=== PATIENT | female | born 1995 | race Caucasian/White ===

== ENCOUNTER → 2016-06-15 | Outpatient (CLI) | payer BC ==
[~2016-06-15] MED LIST: BCPILLS PO
--- NOTE | 2016-06-15 21:41 | DIAGNOSTIC IMAGING REPORT ---
LEFT HIP UNILATERAL 2 VIEWS CLINICAL HISTORY: LEFT HIP PAIN pain COMPARISON: None. DISCUSSION: The bones and joint spaces appear intact. There is no evidence of fracture, dislocation or bony disease. There is no evidence for soft tissue swelling. IMPRESSION: Negative study. Electronically signed by: Froy Hardy M.D. 06/15/2016 9:40 PM Dictated Date/Time: 06/15/2016 9:39 PM
[2016-06-15 21:45] LABS: URINE APPEARANCE CLEAR (CLEAR); URINE BILIRUBIN NEG (NEG); URINE COLOR YELLOW; URINE NITRITE NEG (NEG); URINE PH 5.5 (4.5-7.5); URINE SPECIFIC GRAVITY 1.016 (1.000-1.030); UROBILINOGEN NEG (NEG)
[2016-06-15 21:49] LABS: BASO % 0.5 %; BASO ABS # 0.03 K/uL (0-0.2); COMPLETE YES; EOS % 0.8 %; IG% 0.2 %; LYMPH % 48.2 %; LYMPH ABS # 2.91 K/uL (1.2-3.4); MEAN CORPUSCULAR HEMOGLOBIN 30.4 pg (25-34); MEAN CORPUSCULAR HGB CONC 34.5 g/dl (32-36); MEAN PLATELET VOLUME 10.6 fL (7.4-10.4); NEUT % 45.3 %; PLATELET COUNT 211 K/uL (130-400); WHITE BLOOD COUNT 6.04 K/uL (4.8-10.8)
[2016-06-15 21:53] LABS: MANUAL MICROSCOPIC REQUIRED? NO; REVIEW REQ? NO
[2016-06-15 21:57] LABS: PFT COL EPI 120 SECONDS (80-184)
== END | disposition home or self-care (01) ==
LOC: C.RAD 20:41
PROVIDERS: ATTEND Family Medicine
DX: M25.551 Pain in right hip (principal); I73.00 Raynaud's syndrome without gangrene

== ENCOUNTER → 2017-03-31 | Outpatient (CLI) | payer BC ==
[2017-03-31 13:22] LABS: HEMATOCRIT 41.3 % (37-47); MEAN CORPUSCULAR HEMOGLOBIN 30.7 pg (25-34); MEAN CORPUSCULAR HGB CONC 34.1 g/dl (32-36); MEAN PLATELET VOLUME 10.7 fL (7.4-10.4); PLATELET COUNT 186 K/uL (130-400); RED BLOOD COUNT 4.59 M/uL (4.2-5.4); WHITE BLOOD COUNT 3.86 K/uL (4.8-10.8)
[2017-03-31 13:41] LABS: PREG INTERNAL NEGATIVE QC NEG CLEAR BACKGROUND; PREG INTERNAL POSITIVE QC POS CONTROL LINE
== END | disposition home or self-care (01) ==
LOC: C.LAB1850 12:21
PROVIDERS: ATTEND Physician Assistant
DX: Z11.3 Encounter for screening for infections with a predominantly sexual mode of transmission (principal); N92.0 Excessive and frequent menstruation with regular cycle

== ENCOUNTER 2017-04-13 13:23 | Emergency (ER) | payer BC ==
[~2017-04-13] VITALS: Ht 170.2 cm; Wt 57.6 kg
[2017-04-13 13:24] VITALS: Ht 170.2 cm; Wt 57.6 kg
[2017-04-13] MEDS ORDERED: ONDANSETRON 4MG OD TAB PO ONE (13:45)
[2017-04-13] MEDS ORDERED: SODIUM CHLORIDE 0.9% 1000ML 1,000 ML IV STA (13:45)
[2017-04-13] MEDS ORDERED: MoRPHine SULFATE 2 MG/ML CARP IV STA (13:57)
[2017-04-13 14:31] LABS: PREG INTERNAL NEGATIVE QC NEG CLEAR BACKGROUND; PREG INTERNAL POSITIVE QC POS CONTROL LINE
[2017-04-13 14:32] LABS: URINE APPEARANCE CLEAR (CLEAR); URINE BILIRUBIN NEG (NEG); URINE COLOR ORANGE; URINE NITRITE NEG (NEG); URINE SPECIFIC GRAVITY 1.006 (1.000-1.030); UROBILINOGEN NEG (NEG)
[2017-04-13 14:34] LABS: MANUAL MICROSCOPIC REQUIRED? NO; REVIEW REQ? NO
[2017-04-13 14:35] LABS: SULFASALICYLIC ACID POS (NEG)
[2017-04-13 14:46] LABS: BASO % 0.7 %; BASO ABS # 0.03 K/uL (0-0.2); COMPLETE YES; EOS % 0.7 %; HEMATOCRIT 40.3 % (37-47); IG% 0.2 %; LYMPH % 40.1 %; LYMPH ABS # 1.66 K/uL (1.2-3.4); MEAN CELL VOLUME 87.2 fL (80-100); MEAN CORPUSCULAR HGB CONC 35.5 g/dl (32-36); MEAN PLATELET VOLUME 10.4 fL (7.4-10.4); MONO % 5.8 %; NEUT % 52.5 %; PLATELET COUNT 181 K/uL (130-400); RED BLOOD COUNT 4.62 M/uL (4.2-5.4); WHITE BLOOD COUNT 4.14 K/uL (4.8-10.8)
[2017-04-13 14:55] LABS: PROTHROMBIN TIME (PATIENT) 10.4 SECONDS (9.0-12.0)
[2017-04-13 15:08] LABS: PREG INTERNAL NEGATIVE QC NEG CLEAR BACKGROUND; PREG INTERNAL POSITIVE QC POS CONTROL LINE
[2017-04-13 15:13] LABS: BUN/CREATININE RATIO 11.4 (10-20); CALCIUM 9.3 mg/dl (8.5-10.1); CREATININE 0.69 mg/dl (0.60-1.20); POTASSIUM 3.3 mmol/L (3.5-5.1)
[2017-04-13 15:16] LABS: ALB/GLOB RATIO 1.3 (0.9-2)
[2017-04-13 16:17] VITALS: BP 106/63; PULSE 59; TEMP 36.9; O2SAT 98
--- NOTE | 2017-04-13 16:32 | EMERGENCY ROOM VISIT NOTE ---
ED Visit Note First contact with patient: 13:35 Chief Complaint: Vaginal bleeding. History of Present Illness: Ms. Hsieh is a 21-year-old white female who ambulates into the ED accompanied by female friend complaining of vaginal bleeding and right lower quadrant abdominal pain. Historically patient is being evaluated for menorrhagia by the by the [facility] [employer] [facility] [employer] [facility]. Her last visit was 03/31/2017. At that visit laboratory results showed no anemia, negative , estradiol was slightly low and FSH was normal. STD testing was performed and were negative. An ultrasound showed some fluid within the endometrial cavity but was otherwise normal. She was started on oral control upon discharge. Patient reports she is been taking her oral control as prescribed. She reports for the last 48 hours she has had constant vaginal bleeding; heavily coating one pad every hour. No passage of large clots or saturation of pads. Also over the last 48 hours she started developing some cramping in the left lower quadrant. She rates this discomfort 5/10. She does report its constant but has waxed and waned in intensity. She has not taken any medication for her pain. She has not identified any aggravating or alleviating factors related to the pain. Associated with her pain she reports she slightly lightheaded and has had a decreased appetite. She is also noted that she is bleeding when brushing her teeth and also feels she bruises easily; she's never been evaluated for bleeding disorder. She denies fevers, chills, sweats, skin eruptions, skin color changes, dizziness , neck/back pain, chest pain, shortness of breath, palpitations, upper abdominal pain, nausea, vomiting, urinary symptoms, diarrhea, constipation, rectal bleeding, black/tarry stools. Lastly she did call her services host office today and was referred to the ED because she was not able to be seen at the office. Review of Systems: As noted above in history of present illness. All body systems were reviewed and found to be negative as noted above. Past Medical History: As previously noted, asthma, gastric ulcers. Current Medications: Allergies to Medications: Amoxicillin. Social History: Patient is currently employed; she feels safe in her home environment; she denies tobacco and alcohol use. Physical Examination: Vital Signs: Date Time Temp Pulse Resp B/P (MAP) Pulse Ox O2 Delivery O2 Flow Rate FiO2 04/13/17 16:17 36.9 59 18 106/63 98 04/13/17 15:13 59 18 106/63 98 Room Air 04/13/17 13:58 76 129/74 74 129/81 80 111/85 04/13/17 13:24 36.9 73 16 129/89 100 Room Air GENERAL: 21-year-old female in mild distress due to symptoms, nontoxic-appearing , afebrile and hemodynamically stable. NEUROLOGICAL: Awake, alert and oriented to person, place and time. Answering questions appropriately and following commands. Normal gait. Good hand eye coordination. No focal motor sensory deficits. SKIN: Warm, dry and pink. No soft tissue eruptions or trauma noted. HEENT: Atraumatic and normocephalic. PERRLA. Sclera white and conjunctiva pink. Oral cavity moist and pink. Pharynx is nonerythematous or edematous. No lymphadenopathy. Trachea midline. No jugular venous distention. BACK: No tenderness over the bony spine. No CVA tenderness. THORAX: Lungs sounds are clear to auscultation and equal bilaterally with symmetrical chest wall. No wheezing, rales or rhonchi. No crepitus, tenderness , subcutaneous air or deformities noted. HEART: Regular rate and rhythm. No gallops, rubs or murmurs are appreciated. ABDOMEN: Flat, soft and nontender. Positive bowel sounds in all quadrants. No guarding, rigidity or organomegaly. PELVIC: Deferred at patient request. EXTREMITIES: Moves all extremities well on command and with purpose. All distal neurovascular statuses are intact and equal bilaterally. ED Course: Patient is assessed as noted above. Patient's medication list was reviewed. Laboratory Testing: Test 04/13/17 14:10 04/13/17 14:42 Range/Units Urine Color ORANGE Urine Appearance CLEAR CLEAR Urine pH 8.0 4.5-7.5 Urine Specific [place] 1.006 1.000-1.030 Urine Protein 1+ NEG Urine Glucose (UA) NEG NEG Urine Ketones NEG NEG Urine Occult Blood 3+ NEG Urine Nitrite NEG NEG Urine Bilirubin NEG NEG Urine Urobilinogen NEG NEG Urine Leukocyte Esterase NEG NEG Urine WBC (Auto) 1-5 0-5 /hpf Urine RBC (Auto) >30 0-4 /hpf Urine Hyaline Casts (Auto) 0 0-5 /lpf Urine Epithelial Cells (Auto) 5-10 0-5 /lpf Urine Bacteria (Auto) NEG NEG Urine Test NEG NEG White Blood Count 4.14 4.8-10.8 K/uL Red Blood Count 4.62 4.2-5.4 M/uL Hemoglobin 14.3 12.0-16.0 g/dL Hematocrit 40.3 37-47 % Mean Corpuscular Volume 87.2 80-100 fL Mean Corpuscular Hemoglobin 31.0 25-34 pg Mean Corpuscular Hemoglobin Concent 35.5 32-36 g/dl Platelet Count 181 130-400 K/uL Mean Platelet Volume 10.4 7.4-10.4 fL Neutrophils (%) (Auto) 52.5 % Lymphocytes (%) (Auto) 40.1 % Monocytes (%) (Auto) 5.8 % Eosinophils (%) (Auto) 0.7 % Basophils (%) (Auto) 0.7 % Neutrophils # (Auto) 2.17 1.4-6.5 K/uL Lymphocytes # (Auto) 1.66 1.2-3.4 K/uL Monocytes # (Auto) 0.24 0.11-0.59 K/uL Eosinophils # (Auto) 0.03 0-0.5 K/uL Basophils # (Auto) 0.03 0-0.2 K/uL RDW Standard Deviation 38.9 36.4-46.3 fL RDW Coefficient of Variation 12.2 11.5-14.5 % Immature Granulocyte % (Auto) 0.2 % Immature Granulocyte # (Auto) 0.01 0.00-0.02 K/uL Prothrombin Time 10.4 9.0-12.0 SECONDS Prothromb Time International Ratio 1.0 0.9-1.1 Activated Partial Thromboplast Time 26.2 21.0-31.0 SECONDS Partial Thromboplastin Ratio 1.0 Sodium Level 138 136-145 mmol/L Potassium Level 3.3 3.5-5.1 mmol/L Chloride Level 104 98-107 mmol/L Carbon Dioxide Level 28 21-32 mmol/L Anion Gap 6.0 3-11 mmol/L Blood Urea Nitrogen 8 7-18 mg/dl Creatinine 0.69 0.60-1.20 mg/dl Est Creatinine Clear Calc Drug Dose 118.3 ml/min Estimated GFR () 145.2 Estimated GFR (Non- 125.3 BUN/Creatinine Ratio 11.4 10-20 Random Glucose 82 70-99 mg/dl Calcium Level 9.3 8.5-10.1 mg/dl Total Bilirubin 0.3 0.2-1 mg/dl Aspartate Amino Transf (AST/SGOT) 17 15-37 U/L Alanine Aminotransferase (ALT/SGPT) 17 12-78 U/L Alkaline Phosphatase 86 45-117 U/L Total Protein 7.8 6.4-8.2 gm/dl Albumin 4.4 3.4-5.0 gm/dl Globulin 3.4 2.5-4.0 gm/dl Albumin/Globulin Ratio 1.3 0.9-2 Human Chorionic Gonadotropin, Qual NEG NEG Patient was ordered IV hydration and pain medications and refused. Patient was reassessed multiple times during her stay in the emergency department. Patient's case was reviewed with Dr. Alice Engel, [facility] [employer] [facility] ; she recommended that the patient take 2 of her current 20 g estrogen tablets until bleeding stops or she is just spotting. She is then to continue to tablets for 3 additional days. She then reported that she would place the patient on a higher dose of estrogen after bleeding was controlled. She also recommended office follow-up. Patient was educated about today's findings and instructed on her treatment plan ; she verbalized understanding and agreement with this plan. Clinical Impression: Menorrhagia. Decision-Making: Initially my differential diagnosis I considered ectopic , menorrhagia, ovarian cyst rupture and other causes. Disposition: Patient discharged home in stable condition accompanied by her father; prior to departure she was reassessed and subjectively reported she was still having abdominal pain and rated her discomfort 5/10. Plan: Patient was encouraged to change her control medications as noted above. Patient is encouraged use 650 mg of acetaminophen every 6 hours as needed for pain. Patient was encouraged to follow-up with Dr. Engel for follow-up care and treatment. Patient was encouraged return ED for worsening bleeding, worsening pain, any episodes of fainting, fevers or any new/concerning symptoms.
== END 2017-04-13 16:18 | disposition home or self-care (01) ==
LOC: C.EDB 13:24 → C.EDC 16:18
DX: N92.0 Excessive and frequent menstruation with regular cycle (principal); J45.909 Unspecified asthma, uncomplicated

== ENCOUNTER 2022-09-10 07:27 | Inpatient (IN) ==
[2022-09-10] MEDS ORDERED: OXYTOCIN 30 UNITS/500 ML BAG IV PRN ×2 (08:50→20:10)
[2022-09-10] MEDS ORDERED: LIDOCAINE 1% LOCAL 20 ML VIAL INFIL PRN (08:50)
[2022-09-10] MEDS ORDERED: DINOPROSTONE 10 MG INSERT PV ONE (08:51)
[2022-09-10 09:29] LABS: Hematocrit (blood only) 37.4 % (37.0-47.0); Hemoglobin 13.1 g/dl (12.0-16.0); Mean Corpuscular Volume 91.2 fL (80.0-100.0); Mean Platelet Volume 11.2 fL (9.4-12.4); Platelet Count 180 K/uL (130-400); RDW Coefficient of Variation 12.3 % (11.5-14.5); RDW Standard Deviation 40.8 fL (36.4-46.3); White Blood Count 6.71 K/ul (4.8-10.8)
--- NOTE | 2022-09-10 09:29 | History & Physical Report ---
Date of Service September 10, 2022 Assessment & Plan (1) Post-term , 40-42 weeks of gestation: Plan: 27-year-old at 40 weeks and 3 days of gestation presenting today for induction of labor for postdates, Vital signs stable afebrile, heart rate reassuring, GBS negative, Cervix favorable, Joseph score 5, Discussed options of induction of labor including Cervidil, p.o. Cytotec, IV oxytocin and the difference and what to expect. Patient agreed with Cervidil which was placed without faculty. Continue to monitor closely. All questions were answered. Admission and Anticipated Discharge Date Admission Date: September 10, 2022 History of Present Illness Primary Care Provider: NO PCP Patient is a 27-year-old G1, P0 at 40 weeks and 3 days of gestation who was scheduled for induction of labor for postdates. She has no complaints. No contractions, leakage of fluid, vaginal bleeding. She reports good movements. Her has been uncomplicated, GBS negative. Allergies Allergy/AdvReac Type Severity Reaction Status Date / Time amoxicillin Allergy Unknown Rash Verified 09/10/22 08:14 bee venom protein (honey bee) Allergy Unknown . Unverified 04/13/17 14:33 Home Medications Medication Instructions Recorded Confirmed Type prenat.vits,baldev,[id number] 1 tab PO DAILY 09/10/22 09/10/22 History Patient History Surgical History H/O wisdom tooth extraction Family History Other No significant family history Social History Smoking Status: Never smoker Hx Alcohol Use: No Hx Substance Use: No Preferred Language: [place] Communication Ability: Effective Supervisor [employer] Required: No Beliefs That Will Affect Care: None marital status: Current Living Situation: Spouse Other Information That Helps Us Care for You: No Feels Safe at Home: Yes Safety Concerns: Feels Safe At This Time Assistive Devices: None HAIR STYLIST History No history of STDs, no history of chlamydia, gonorrhea, herpes Review of Systems as per Subjective / HPI Physical Exam Constitutional: WD/WN, vitals as above Gastrointestinal (Abdomen): normal bowel sounds, soft, nontender, no hepatosplenomegaly (Gravid) Genitourinary: normal external appearance OB Exam Abdomen: + vertex Manual OB Exam: + cervical dilation 3 cm, + cervical effacement 50% and + station high OB Exam Monitor Tracing: + external uterine monitor used and + category I Results & Data Vital Signs (Past 12 Hours) Vital Signs Temp Pulse Resp BP 09/10/22 08:02 36.6 C 87 18 130/80
[2022-09-10] MEDS: LACTATED RINGER'S 1,000 ML IV PRN ×2 (15:44→17:26)
[2022-09-10] MEDS ORDERED: BUPIVACAINE 0.25% PF 30 ML VIAL ONE (16:51)
[2022-09-10] MEDS ORDERED: LIDOCAINE 2%/EPINEPHRINE 1:200,000 20 ML PF ONE (16:51)
[2022-09-10] MEDS ORDERED: SODIUM CHLORIDE 0.9% PF INJ 10 ML VIAL ONE (16:51)
[2022-09-10] MEDS ORDERED: ePHEDrine sulfate 50 MG/ML AMP ONE (16:51)
[2022-09-10] MEDS ORDERED: fentaNYL citrate PF 100 MCG/2 ML VIAL ONE (16:51)
[2022-09-10] MEDS ORDERED: fentaNYL 2MCG/ML ROPIVACAINE 1.25MG/ML 100 ML BAG EPI ONE (16:52)
--- NOTE | 2022-09-10 17:07 | Obstetrical Progress Note ---
Date of Service September 10, 2022 Assessment & Plan Admission and Anticipated Discharge Date Admission Date: September 10, 2022 Subjective Patient is painful and desires epidural VE; 4-5 cm/70%/-1, CERVIDIL is removed FHR categ I [place] contractions, q 1-2 min Epidural for pain Continue to monitor Results & Data Vital Signs (Past 12 Hours) Vital Signs Temp Pulse Resp BP Pulse Ox 09/10/22 17:00 73 98 09/10/22 15:43 36.8 C 67 18 106/62 09/10/22 11:26 36.7 C 65 16 108/63 09/10/22 08:02 36.6 C 87 18 130/80
--- NOTE | 2022-09-10 17:33 | Anesthesiology Consultation ---
Date of Service September 10, 2022 Assessment & Plan Chart Review Chart Review: Acceptable Risk for Labor Epidural Consults Requested none History Height/Weight Height: 5 ft 7 in Weight: 81.193 kg Allergies Allergy/AdvReac Type Severity Reaction Status Date / Time amoxicillin Allergy Unknown Rash Verified 09/10/22 08:14 bee venom protein (honey bee) Allergy Unknown . Unverified 04/13/17 14:33 Medications Home Medications Medication Instructions Recorded Confirmed Last Taken prenat.vits,baldev,zub-cspd-futfq 1 tab PO DAILY 09/10/22 09/10/22 09/09/22 Active Medications Generic Name Dose Route Start Last Admin Trade Name Freq PRN Reason Stop Dose Admin Lactated Ringer's 1,000 mls @ 150 mls/hr 09/10/22 08:50 09/10/22 17:26 Lr IV 09/12/22 08:49 150 mls/hr .[id number] PRN Administration L&D Protocol Protocol Past Family History Family History Other No significant family history Past Surgical History Surgical History H/O wisdom tooth extraction Social History Smoking Status: Never smoker Hx Alcohol Use: No Hx Substance Use: No substance use type: does not use Physical Exam Vital Signs Last Vital Signs Temp 36.8 C 09/10/22 15:43 Pulse 76 09/10/22 17:30 Resp 18 09/10/22 15:43 BP 98/57 L 09/10/22 17:30 Pulse Ox 97 09/10/22 17:30 Testing Laboratory Results 09/10/22 08:23
[2022-09-10] MEDS ORDERED: ePHEDrine sulfate 50 MG/ML AMP IV PRN (17:38)
[2022-09-10] MEDS ORDERED: fentaNYL citrate PF 100 MCG/2 ML VIAL EPI PRN (17:38)
[2022-09-10] MEDS ORDERED: NALOXONE HCL 1 MG in SODIUM CHLORIDE 0.9% 1000ML 1,000 ML IV PRN (17:38)
[2022-09-10] MEDS ORDERED: LIDOCAINE 2% MPF LOCAL 5 ML VIAL EPI PRN (17:38)
[2022-09-10] MEDS ORDERED: diphenhydrAMINE 50 MG/ML VIAL IV PRN (17:38)
[2022-09-10] MEDS ORDERED: ROPIVACAINE 0.5% PF 5 MG/ML 20 ML VIAL EPI PRN (17:38)
[2022-09-10] MEDS ORDERED: NALOXONE HCL 0.4 MG/1 ML VIAL/CARP IV PRN (17:38)
[2022-09-10] MEDS ORDERED: BUPIVACAINE 0.25% PF 30 ML VIAL EPI PRN (17:38)
[2022-09-10] MEDS ORDERED: fentaNYL 2MCG/ML ROPIVACAINE 1.25MG/ML 100 ML BAG EPI PRN (17:38)
[2022-09-10] MEDS ORDERED: NALBUPHINE HCL INJ 10 MG/ML AMP IV PRN (17:38)
[2022-09-10] MEDS ORDERED: SODIUM CHLORIDE 0.9% PF INJ 10 ML VIAL EPI PRN (17:38)
[2022-09-10] MEDS ORDERED: LIDOCAINE 2%/EPINEPHRINE 1:200,000 20 ML PF EPI STA (17:49)
[2022-09-10] MEDS ORDERED: BUPIVACAINE 0.25% PF 30 ML VIAL EPI STA (17:49)
[2022-09-10] MEDS ORDERED: SODIUM CHLORIDE 0.9% PF INJ 10 ML VIAL EPI STA (17:49)
[2022-09-10] MEDS ORDERED: fentaNYL citrate PF 100 MCG/2 ML VIAL EPI STA (17:49)
[2022-09-10] MEDS ORDERED: FLUCONAZOLE 50 MG TAB PO ONE (18:21)
--- NOTE | 2022-09-10 18:23 | Obstetrical Progress Note ---
Date of Service September 10, 2022 Assessment & Plan Admission and Anticipated Discharge Date Admission Date: September 10, 2022 Subjective Patient is comfortable now, received epidural VSS febrile FHR categ I [place] ctxs q 1-3 min VE; 5/ 70%/ -1, tight bag, AROM'ed clear fluid with bloody show Continue to monitor closely Results & Data Vital Signs (Past 12 Hours) Vital Signs Temp Pulse Resp BP Pulse Ox 09/10/22 18:20 76 98 09/10/22 18:15 86 98 09/10/22 18:10 70 96 09/10/22 17:30 18 09/10/22 17:30 18 09/10/22 18:09 62 114/62 09/10/22 18:05 73 97 09/10/22 18:00 70 96 09/10/22 17:55 77 97 09/10/22 17:51 75 109/60 09/10/22 17:50 72 96 09/10/22 17:45 96 09/10/22 17:45 69 09/10/22 17:45 75 104/59 L 09/10/22 17:40 98 09/10/22 17:40 105 H 09/10/22 17:40 86 103/59 L 09/10/22 17:35 98 09/10/22 17:35 96 H 09/10/22 17:35 98 H 95/59 L 09/10/22 17:30 97 09/10/22 17:30 76 09/10/22 17:30 95 H 98/57 L 09/10/22 17:27 75 104/58 L 09/10/22 17:25 76 18 97 09/10/22 17:24 75 104/62 09/10/22 17:21 68 108/65 09/10/22 17:20 67 18 97 09/10/22 17:18 65 112/66 09/10/22 17:15 77 118/81 97 09/10/22 17:10 80 100 09/10/22 17:11 74 124/80 09/10/22 17:05 76 99 09/10/22 17:00 73 98 09/10/22 15:43 36.8 C 67 18 106/62 09/10/22 11:26 36.7 C 65 16 108/63 09/10/22 08:02 36.6 C 87 18 130/80
[2022-09-10] MEDS ORDERED: HYDROCORTISONE ACETATE 25 MG SUPP PR PRN (20:10)
[2022-09-10] MEDS ORDERED: BENZOCAINE 20% AER SPR 82.5 GM CAN EXT PRN (20:10)
[2022-09-10] MEDS ORDERED: MEASLES, MUMPS & RUBELLA VIRUS VIAL SQ ONE (20:10)
[2022-09-10] MEDS ORDERED: bisacodyL 10 MG SUPP PR PRN (20:10)
[2022-09-10] MEDS ORDERED: DIPHTHERIA/TETANUS/PERTUSSIS Vaccine (Tdap, Age 7+yrs) 0.5mL SYR/VL IM ONE (20:10)
[2022-09-10] MEDS ORDERED: oxyCODONE/ACETAMINOPHEN 5mg/325mg TAB PO PRN (20:10)
--- NOTE | 2022-09-10 20:10 | Delivery Summary ---
Vaginal Delivery Summary Date of Service September 10, 2022 Vaginal Delivery Summary Patient was found to be fluid dilated and desired to push. She pushed for about 20 minutes and delivered the head without faculty. The shoulders were delivered with minimal traction and the baby was handed off to the mother, that her mouth and nose were suctioned, the cord was clamped times and cut at 1 minute delay. The baby was moving and crying vigorously at that point. Then the vagina and perineum were checked for lacerations. There was a second- degree laceration at the posterior fourchette and it was repaired with 2-0 Vicryl in a running locked fashion. And 1st degree laceration at 3 o'clock p osition at hymen and it was repaired with 2-0 Vicryl. Then the placenta was found to be in the vagina and delivered spontaneously as intact and complete. The uterus was explored found to be empty. The lower segment was cleared off all cloths and debris. Fundus was firm and EbL was 200 ml. Repair was covered with Nicol powder and it was hemostatic. The mom and baby tolerated the procedure well. Baby was a viable male Apgars, 8/9. No complications happened and I was present during whole procedure. The sponge, needle and instrument count was correct x2.
[2022-09-10] MEDS: DOCUSATE SODIUM 100 MG CAP PO SCH (21:19)
[2022-09-11] MEDS: MAGNESIUM HYDROXIDE SUSP 30 ML UDC PO SCH ×2 (00:09→22:21)
--- NOTE | 2022-09-11 00:11 | Anesthesia Procedure Note ---
Date of Service September 11, 2022 Anesthesia Post Epidural Note Vital Signs Vital Signs: Temp Pulse Resp BP Pulse Ox 36.9 C 96 H 18 120/78 98 09/10/22 21:50 09/10/22 22:34 09/10/22 21:50 09/10/22 22:34 09/10/22 20:10 Pain Intensity Right Lower Abdomen: Pain Intensity: 6 Notes Mental Status: alert / awake / arousable Nausea / Vomiting: adequately controlled Pain: adequately controlled Airway Patency, RR, SpO2: stable & adequate BP & HR: stable & adequate Hydration State: stable & adequate Neuraxial Anesthesia: was administered and sensory block is resolving Anesthetic Complications: no major complications apparent and Pt Satisfied with anesthetic care Epidural: Removed without complications and With tip intact
[2022-09-11] MEDS: IBUPROFEN 600 MG TAB PO PRN ×3 (03:20→23:58)
[2022-09-11] MEDS: ACETAMINOPHEN 325 MG TAB PO PRN ×3 (03:21→18:20)
[2022-09-11 07:20] LABS: Hematocrit (blood only) 32.6 % (37.0-47.0); Hemoglobin 11.4 g/dl (12.0-16.0); Mean Corpuscular Hemoglobin 31.7 pg (25.0-34.0); Mean Corpuscular Volume 90.6 fL (80.0-100.0); Platelet Count 150 K/uL (130-400); RDW Coefficient of Variation 12.3 % (11.5-14.5); RDW Standard Deviation 40.7 fL (36.4-46.3); White Blood Count 10.62 K/ul (4.8-10.8)
[2022-09-11] MEDS: DOCUSATE SODIUM 100 MG CAP PO SCH ×2 (07:30→20:15)
[2022-09-11] MEDS: PRENATAL VITAMIN 1 TAB PO SCH (07:30)
[2022-09-11] MEDS: FERROUS SULFATE 325 MG TAB PO SCH (07:31)
--- NOTE | 2022-09-11 10:07 | Obstetrical Progress Note ---
Date of Service September 11, 2022 Assessment & Plan (1) Normal course: PPD #1 pt doing well anticipate disch tomorrow Results & Data Vital Signs (Past 12 Hours) Vital Signs Temp Pulse Pulse Pulse Resp BP BP 09/11/22 07:30 36.5 C 70 18 102/64 09/11/22 03:39 36.7 C 65 16 112/67 09/10/22 23:45 36.8 C 98 H 16 118/72 09/10/22 22:34 96 H 120/78 09/10/22 22:19 72 113/67 Pulse Ox O2 Del Method 09/11/22 07:30 97 Room Air 09/11/22 03:39 Room Air 09/10/22 23:45 Room Air 09/10/22 22:34 09/10/22 22:19
[2022-09-11] MEDS ORDERED: bisacodyL 5 MG TABEC PO SCH (20:00)
--- NOTE | 2022-09-12 06:56 | Obstetrical Progress Note ---
Date of Service September 12, 2022 Assessment & Plan (1) Normal course: PPD #2 pt doing well no complaints disch home Results & Data Vital Signs (Past 12 Hours) Vital Signs Temp Pulse Resp BP O2 Del Method 09/11/22 23:10 37.1 C 68 16 109/70 Room Air
[2022-09-12 07:05] LABS: Hematocrit (blood only) 32.9 % (37.0-47.0); Hemoglobin 11.6 g/dl (12.0-16.0)
[2022-09-12] MEDS: DOCUSATE SODIUM 100 MG CAP PO SCH (07:56)
[2022-09-12] MEDS: PRENATAL VITAMIN 1 TAB PO SCH (07:56)
[2022-09-12] MEDS: IBUPROFEN 600 MG TAB PO PRN (07:56)
[2022-09-12] MEDS: FERROUS SULFATE 325 MG TAB PO SCH (07:56)
== END 2022-09-12 13:30 | disposition home or self-care (01) | DRG 807 ==
LOC: 4S1 07:27 → 4E2 23:32

== ENCOUNTER 2024-04-03 08:00 | Inpatient (IN) ==
[2024-04-03] MEDS ORDERED: OXYTOCIN 30 UNITS/NSS 30 UNITS/500 ML BAG IV PRN ×2 (09:17→14:08)
[2024-04-03] MEDS ORDERED: LIDOCAINE 1% LOCAL 20 ML VIAL INFIL PRN (09:17)
--- NOTE | 2024-04-03 09:40 | History & Physical Report ---
Date of Service April 03, 2024 Assessment & Plan (1) Post-term , 40-42 weeks of gestation: Plan: Oxytocin for IOL Admission and Anticipated Discharge Date Admission Date: April 03, 2024 History of Present Illness Chief Complaint: induction of labor Primary Care Provider: PAVAN PCP 28 F P1001 at 40.1 weeks admitted for IOL. GBS is negative. History of macrosomia with first deliver with no complications or shoulder dystocia. No history of GDM. This baby not macrosomic per ultrasound. Allergies Allergy/AdvReac Type Severity Reaction Status Date / Time amoxicillin Allergy Unknown Rash Verified 01/15/24 19:11 bee venom protein (honey bee) Allergy Unknown . Verified 01/15/24 19:11 Home Medications Medication Instructions Recorded Confirmed Type prenat.vits,baldev,icj-eamw-xksge 1 tab PO DAILY 09/10/22 04/03/24 History Past Med/Surg History Problem List Decreased movement affecting management of mother, antepartum Normal course Post-term , 40-42 weeks of gestation Constipation (Acute) Medical History (spontaneous vaginal delivery) 08/2022 Surgical History H/O wisdom tooth extraction Family History Other No significant family history Social History Smoking Status: Never smoker Second Hand Exposure: No; Hx Alcohol Use: No Hx Substance Use: No Preferred Language: Divehi Communication Ability: Effective Long Term Care Administrator Required: No Beliefs That Will Affect Care: None marital status: marital status details: Hermilo Croft Current Living Situation: Family Current Living Situation Comment: Lives at home with , son and one dog. current occupational status: employed current occupation: passenger coach driver Other Information That Helps Us Care for You: No Feels Safe at Home: Yes Safety Concerns: Feels Safe At This Time Assistive Devices: None Review of Systems Review of Systems: All systems reviewed & are unremarkable except as noted in HPI & below Physical Exam Constitutional: WD/WN, vitals as above Respiratory: normal respiratory effort, lungs clear to auscultation Cardiovascular: RRR, no murmur, no edema Gastrointestinal (Abdomen): Inspection/Auscultation: abdomen normal to inspection Musculoskeletal: Extremities: extremities normal to inspection Skin: no rashes, warm and dry Neurologic: patellar DTR's 2+ bilat, sensation intact Psychiatric: A+Ox3, euthymic affect Genitourinary: no vaginal lesions, no adnexal mass Manual OB Exam: + cervical dilation 3 cm, + cervical effacement 70% and + station -2 OB Exam Monitor Tracing: + external FHT monitor used, + external uterine monitor used, + category I and + normal FHT variability Results & Data Results & Data Vital Signs (Past 12 Hours) Vital Signs Temp Pulse Resp BP 04/03/24 09:05 75 116/68 04/03/24 09:00 36.5 C 75 16 116/68
[2024-04-03 10:03] LABS: Hematocrit (blood only) 37.5 % (37.0-47.0); Hemoglobin 12.9 g/dl (12.0-16.0); Mean Corpuscular Hemoglobin 31.2 pg (25.0-34.0); Mean Corpuscular Hgb Conc 34.4 g/dL (32.0-36.0); Mean Corpuscular Volume 90.6 fL (80.0-100.0); Mean Platelet Volume 10.9 fL (9.4-12.4); Platelet Count 179 K/uL (130-400); RDW Coefficient of Variation 12.4 % (11.5-14.5); RDW Standard Deviation 41.1 fL (36.4-46.3); Red Blood Count 4.14 M/uL (4.20-5.40); White Blood Count 6.45 K/ul (4.8-10.8)
[2024-04-03] MEDS: SODIUM CHLORIDE 0.9% 1,000 ML IV SCH (10:07)
[2024-04-03] MEDS: OXYTOCIN 30 UNITS/NSS 30 UNITS/500 ML BAG IV PRN (10:08)
[2024-04-03] MEDS ORDERED: SODIUM CHLORIDE 0.9% 500 ML IV SCH (10:15)
[2024-04-03] MEDS ORDERED: SODIUM CHLORIDE 0.9% 1,000 ML IV SCH (10:15)
--- NOTE | 2024-04-03 12:10 | Labor Progress Brief Note ---
Date of Service April 03, 2024 Assessment & Plan Admission and Anticipated Discharge Date Admission Date: April 03, 2024 Physical Exam Genitourinary: Manual OB Exam: + cervical dilation 4 cm, + cervical effacement 80%, + station -1 and + amniotic fluid clear OB Exam Monitor Tracing: + external FHT monitor used, + external uterine monitor used, + category I and + normal FHT variability AROM with Amni-hook clear fluid Results & Data Vital Signs (Past 12 Hours) Vital Signs Temp Pulse Resp BP 04/03/24 11:28 58 L 114/67 04/03/24 10:28 70 16 116/68 04/03/24 09:05 36.6 C 75 16 116/68 04/03/24 09:00 36.5 C 75 16 116/68
[2024-04-03] MEDS ORDERED: fentaNYL citrate PF 100 MCG/2 ML VIAL ONE (12:14)
[2024-04-03] MEDS ORDERED: ePHEDrine sulfate 50 MG/ML AMP ONE (12:14)
[2024-04-03] MEDS ORDERED: SODIUM CHLORIDE 0.9% PF INJ 10 ML VIAL ONE (12:15)
[2024-04-03] MEDS ORDERED: NALBUPHINE HCL INJ 10 MG/ML AMP IV PRN (12:49)
[2024-04-03] MEDS ORDERED: LIDOCAINE 2%/EPINEPHRINE 1:200,000 20 ML PF EPI STA (12:49)
[2024-04-03] MEDS ORDERED: BUPIVACAINE 0.25% PF 30 ML VIAL EPI STA (12:49)
[2024-04-03] MEDS ORDERED: fentaNYL citrate PF 100 MCG/2 ML VIAL EPI STA (12:49)
[2024-04-03] MEDS ORDERED: ePHEDrine sulfate 50 MG/ML AMP IV PRN (12:49)
[2024-04-03] MEDS ORDERED: diphenhydrAMINE 50 MG/ML VIAL IV PRN (12:49)
[2024-04-03] MEDS ORDERED: NALOXONE HCL 1 MG in SODIUM CHLORIDE 0.9% 1,000 ML IV PRN (12:49)
[2024-04-03] MEDS ORDERED: SODIUM CHLORIDE 0.9% PF INJ 10 ML VIAL EPI PRN (12:49)
[2024-04-03] MEDS ORDERED: fentANYL 2 MCG/ML BUPIVacaine 0.125%-NSS 100ML BAG EPI PRN (12:49)
[2024-04-03] MEDS ORDERED: fentaNYL citrate PF 100 MCG/2 ML VIAL EPI PRN (12:49)
[2024-04-03] MEDS ORDERED: ROPIVACAINE 0.5% PF 5 MG/ML 20 ML VIAL EPI PRN (12:49)
[2024-04-03] MEDS ORDERED: BUPIVACAINE 0.25% PF 30 ML VIAL EPI PRN (12:49)
[2024-04-03] MEDS ORDERED: LIDOCAINE 2% MPF LOCAL 5 ML VIAL EPI PRN (12:49)
[2024-04-03] MEDS ORDERED: SODIUM CHLORIDE 0.9% PF INJ 10 ML VIAL EPI STA (12:49)
[2024-04-03] MEDS ORDERED: NALOXONE HCL 0.4 MG/1 ML VIAL/CARP IV PRN (12:49)
--- NOTE | 2024-04-03 12:49 | Anesthesiology Consultation ---
Date of Service April 03, 2024 Assessment & Plan (1) Encounter for pre-operative examination: Chart Review Chart Review: Patient NOT seen in Pre Admission Testing and Acceptable Risk for Labor Epidural Consults Requested none History Height/Weight Height: 5 ft 7 in Weight: 73.028 kg Allergies Allergy/AdvReac Type Severity Reaction Status Date / Time amoxicillin Allergy Unknown Rash Verified 01/15/24 19:11 bee venom protein (honey bee) Allergy Unknown . Verified 01/15/24 19:11 Medications Home Medications Medication Instructions Recorded Confirmed Last Taken prenat.vits,baldev,vxl-cujm-wljjj 1 tab PO DAILY 09/10/22 04/03/24 03/31/24 Active Medications Generic Name Dose Route Start Last Admin Trade Name Freq PRN Reason Stop Dose Admin Oxytocin 30 units in 500 mls @ 3 mls/hr 04/03/24 09:36 04/03/24 11:10 Pitocin 30 Units/Nss IV 04/05/24 09:35 0.18 units/hr .Q24H PRN 3 mls/hr Labor Induction/Augmentation Titration Protocol 0.18 UNITS/HR Sodium Chloride 1,000 mls @ 50 mls/hr 04/03/24 10:15 04/03/24 11:10 Nss IV 04/04/24 10:14 50 mls/hr .Q20H JANET Infusion Past Medical History Medical History (spontaneous vaginal delivery) 08/2022 Past Family History Family History Other No significant family history Past Surgical History Surgical History H/O wisdom tooth extraction Social History Smoking Status: Never smoker Hx Alcohol Use: No Hx Substance Use: No substance use type: does not use Physical Exam Vital Signs Last Vital Signs Temp 97.9 F 04/03/24 09:05 Pulse 57 L 04/03/24 12:28 Resp 16 04/03/24 10:28 BP 108/69 04/03/24 12:28 Testing Laboratory Results 04/03/24 09:27
[2024-04-03] MEDS: fentANYL 2 MCG/ML BUPIVacaine 0.125%-NSS 100ML BAG ONE (13:02)
[2024-04-03] MEDS: LIDOCAINE 2%/EPINEPHRINE 1:200,000 20 ML PF ONE (13:04)
[2024-04-03] MEDS: BUPIVACAINE 0.25% PF 30 ML VIAL ONE (13:04)
[2024-04-03] MEDS ORDERED: bisacodyL 10 MG SUPP PR PRN (14:08)
[2024-04-03] MEDS ORDERED: BENZOCAINE 20% SPRY 85 APPLN/85 GM CAN EXT PRN (14:08)
[2024-04-03] MEDS ORDERED: ACETAMINOPHEN 325 MG TAB PO PRN (14:08)
[2024-04-03] MEDS ORDERED: DIPHTHER/TETAN/PERTUS Vaccine (Tdap, Adol/Adult) 0.5mL IM ONE (14:08)
[2024-04-03] MEDS ORDERED: HYDROCORTISONE ACETATE 25 MG SUPP PR PRN (14:08)
--- NOTE | 2024-04-03 14:17 | Delivery Summary ---
Vaginal Delivery Summary Date of Service April 03, 2024 Vaginal Delivery Summary over intact perineum live female WANG with delayed cord clamping and Apgars 8/9 weight pending. Cord blood obtained followed by spontaneous delivery of intact placenta. First degree tear repaired with 3/0 Vicryl suture. QBL 180 ml. Final sponge, needle and instrument count are correct. Mom and baby stable.
[2024-04-03] MEDS: IBUPROFEN 600 MG TAB PO PRN (14:23)
--- NOTE | 2024-04-03 15:27 | Anesthesia Procedure Note ---
Date of Service April 03, 2024 Anesthesia Post Epidural Note Vital Signs Vital Signs: Temp Pulse Resp BP Pulse Ox 97.9 F 78 18 105/58 L 98 04/03/24 09:05 04/03/24 15:24 04/03/24 14:40 04/03/24 15:24 04/03/24 14:04 Pain Intensity Hip: Pain Intensity: 0 Lower Medial Abdomen: Pain Intensity: 0 Notes Mental Status: alert / awake / arousable and participated in evaluation Nausea / Vomiting: adequately controlled Pain: adequately controlled Airway Patency, RR, SpO2: stable & adequate BP & HR: stable & adequate Hydration State: stable & adequate Neuraxial Anesthesia: was administered and sensory block is resolving Anesthetic Complications: no major complications apparent and Pt Satisfied with anesthetic care Epidural: Removed without complications and With tip intact
[2024-04-04 01:04] VITALS: O2SAT 97
[2024-04-04 06:40] LABS: Hematocrit (blood only) 32.5 % (37.0-47.0); Hemoglobin 11.3 g/dl (12.0-16.0); Mean Corpuscular Hemoglobin 32.2 pg (25.0-34.0); Mean Corpuscular Hgb Conc 34.8 g/dL (32.0-36.0); Mean Corpuscular Volume 92.6 fL (80.0-100.0); Platelet Count 173 K/uL (130-400); RDW Coefficient of Variation 12.6 % (11.5-14.5); RDW Standard Deviation 42.9 fL (36.4-46.3); Red Blood Count 3.51 M/uL (4.20-5.40)
[2024-04-04] MEDS: PRENATAL VITAMIN 1 TAB PO SCH (08:55)
[2024-04-04] MEDS: FERROUS SULFATE 325 MG TAB PO SCH (08:55)
[2024-04-04] MEDS: DOCUSATE SODIUM 100 MG CAP PO SCH (08:55)
[2024-04-04] MEDS ORDERED: NON-FORMULARY MEDICATION (Prenat.Vits,Cal,Min-Iron-Folic Tablet) PO SCH (09:00)
--- NOTE | 2024-04-04 11:36 | Obstetrical Progress Note ---
Date of Service April 04, 2024 Assessment & Plan (1) Encounter for pre-operative examination: Plan Pt doing well No complaints wishes to be discharged home Subjective Ambulation: ambulating normally Voiding: no voiding problems Passing Gas:: Yes Diet Tolerance:: regular diet Lochia:: Small Feeding Type:: breast feeding Review of Systems All systems reviewed & are unremarkable except as noted in HPI & below Physical Exam Constitutional WD/WN, vitals as above well developed and well nourished Eyes PERRL, conjunctivae normal, anicteric sclerae Neck trachea midline, no thyromegaly Respiratory normal respiratory effort, lungs clear to auscultation Auscultation: no crackles, no rales and no wheezes Cardiovascular RRR, no murmur, no edema Gastrointestinal (Abdomen) normal bowel sounds, soft, nontender, no hepatosplenomegaly Uterus is below umbilicus Musculoskeletal no cyanosis or clubbing, extremities motor strength 5/5 Skin no rashes, warm and dry Neurologic patellar DTR's 2+ bilat, sensation intact Psychiatric A+Ox3, euthymic affect Genitourinary normal external appearance Results & Data Vital Signs (Past 12 Hours) Vital Signs Temp Pulse Pulse Resp BP Pulse Ox O2 Del Method 04/04/24 08:22 36.8 C 64 18 96/66 L Room Air 04/04/24 04:20 36.7 C 54 L 14 97/59 L 97 Room Air 04/03/24 23:45 36.8 C 66 16 112/71 97 Room Air
[2024-04-04 12:48] VITALS: BP 121/83; PULSE 85; RESP 16; TEMP 97.7
[2024-04-04] MEDS ORDERED: bisacodyL 5 MG TABEC PO SCH (20:00)
== END 2024-04-04 15:30 | disposition home or self-care (01) | DRG 807 ==
LOC: 4S1 08:31 → 4E2 16:30